=== PATIENT | male | born 1970 | race Caucasian/White ===

== ENCOUNTER 2019-07-07 06:40 | Emergency (ER) | payer BC ==
[2019-07-07] MEDS ORDERED: Sodium Chloride 0.9% 1,000 ML ONE (07:01)
[2019-07-07] MEDS ORDERED: Ondansetron PF 4 MG/2 ML Vial ONE (07:01)
[2019-07-07] MEDS ORDERED: Ketorolac Tromethamine 30 MG/ML VIAL ONE (07:01)
[2019-07-07 07:35] LABS: Bilirubin Small (Negative); Blood, Urine Large (Negative); Clarity Cloudy (Clear); Glucose, Urine (Dipstick) Negative (Negative); Leukocyte Negative (Negative); Nitrite Negative (Negative); Protein, Urine (Dipstick) 100 mg/dL (Neg-Trace); Urobilinogen 0.2 mg/dL (Less than 2)
[2019-07-07 07:38] LABS: Band 7 % (5-11); Eosinophils 3 % (0-10); Hemoglobin 14.3 g/dL (14.0-18.0); Lymphocytes 43 % (21-51); MDiff Complete? YES; Mean Corpuscular HGB CONC 31.7 g/dL (32.0-36.0); Mean Corpuscular Hemoglobin 29.2 pg (27.0-31.0); Mean Corpuscular Volume 92.3 fL (78.0-98.0); Monocytes 11 % (0-10); Neutrophil 24 % (42-75); Platelet Count 287 thou/uL (130-400); Platelet Morphology Comment Appears Adequate; RBC Distribution Width 11.7 % (11.5-14.5); RBC Morphology Normal; Reactive Lymphocytes 12 % (0-10); Red Blood Cell (RBC) Count 4.87 mill/uL (4.70-6.10); White Blood Cell (WBC) Count 6.7 thou/uL (4.8-10.8)
[2019-07-07 07:44] LABS: Bacteria/HPF Rare-Few HPF (None Seen); RBC/HPF Greater than 50 HPF (0-3); Squamous Epithelial 0-3 HPF (0-3); Yeast-Budding 3+ HPF (None Seen)
[2019-07-07 07:44] LABS: ALT (SGPT) 13 U/L (8-55); AST (SGOT) 11 U/L (5-34); Albumin 4.2 g/dL (3.5-5.0); Alkaline Phosphatase 54 U/L (40-110); Anion Gap 14 mmol/L (10-20); BUN (Urea Nitrogen) 19 mg/dL (8.4-25.7); Bilirubin, Total 0.5 mg/dL (0.2-1.2); Calc. Creatinine Clearance 0 mL/min (70-130); Calcium 8.5 mg/dL (7.8-10.44); Carbon Dioxide 22 mmol/L (22-29); Chloride 110 mmol/L (98-107); Estimated GFR-MDRD 68; Globulin 2.6 g/dL (2.4-3.5); Glucose 136 mg/dL (70-105); Potassium 3.1 mmol/L (3.5-5.1); Protein, Total 6.8 g/dL (6.0-8.3); Sodium 143 mmol/L (136-145)
[2019-07-07] MEDS ORDERED: Morphine 10 MG/ML VIAL ONE (07:45)
[2019-07-07] MEDS ORDERED: NS 0.9% w/ 20 MEQ KCL 1,000 ML ONE (08:03)
[2019-07-07] MEDS ORDERED: Tamsulosin HCl 0.4 MG CAP ONE (08:40)
--- NOTE | 2019-07-07 09:06 | CT ---
CT ABDOMEN AND PELVIS WITHOUT CONTRAST: HISTORY: Flank pain. FINDINGS: ABDOMEN: The lung bases are clear. The liver, spleen, pancreas and gallbladder regions appear unremarkable, given the limitations of a n oncontrast study. The right and left adrenal glands are normal in appearance. The right and left kidneys are normal in size. No renal calculi are seen. The left ureter is slightly dilated and there is prominence of the l eft collecting system. This is related to an approximately 4 mm distal left ureteral calculus, locate d approximately 3 cm proximal to the left ureterovesical junction. There is no significant periaortic or mesenteric adenopathy. PELVIS: No adenopathy, mass or free fluid. The appendix appears unremarkable. IMPRESSION: Approximately 3 to 4 mm distal left ureteral calculus with some very mild left sided hydronephrosis. The calculus is located approximately 3 cm proximal to the ureterovesical junction. POS: [facility]
== END 2019-07-07 09:27 | disposition home or self-care (01) ==
LOC: MADERS 06:40
DX: N20.0 Calculus of kidney (principal); E87.6 Hypokalemia; F17.220 Nicotine dependence, chewing tobacco, uncomplicated; Z79.899 Other long term (current) drug therapy
CPT/HCPCS: 36415; 74176; 80053; 81003; 81015; 85025; 96361; 96365; 96375; J1885; J2270; J2405; J3480; J7050

== ENCOUNTER 2020-12-10 13:47 | Outpatient (CLI) | payer BC | END 2020-12-10 13:48 | disposition home or self-care (01) | LOC: MADRAD 13:47 | PROVIDERS: ATTEND Family Medicine | DX: M25.552 Pain in left hip (principal) | CPT/HCPCS: 72170 ==

== ENCOUNTER 2021-02-02 10:12 | Outpatient (CLI) | payer BC | END 2021-02-02 10:13 | disposition home or self-care (01) | LOC: MADRAD 10:12 | PROVIDERS: ATTEND Family Medicine | DX: U07.1 COVID-19 (principal) | CPT/HCPCS: 71046 ==

== ENCOUNTER 2021-02-04 16:11 | Emergency (ER) | payer BC ==
[~2021-02-04 16:11] MED LIST: Lactated Ringer's 1,000 ML BAG ONE
[2021-02-04] MEDS ORDERED: Ketorolac Tromethamine 30 MG/ML VIAL ONE (16:57)
[2021-02-04] MEDS ORDERED: Albuterol Sulfate 2.5 mg/3 ml Neb ONE (16:57)
[2021-02-04] MEDS ORDERED: Lactated Ringer's 1,000 ML ONE (16:57)
[2021-02-04 17:11] LABS: #Lymphocytes 0.4 thou/uL (1.20-3.40); #Monocytes 0.3 thou/uL (0.11-0.59); #Neutrophils 9.6 thou/uL (1.40-6.50); %Basophils 0.3 % (0.0-1.0); %Lymphocytes 3.4 % (21.0-51.0); %Monocytes 2.7 % (0.0-10.0); %Neutrophils 93.7 % (42.0-75.0); Hemoglobin 14.2 g/dL (14.0-18.0); Mean Corpuscular HGB CONC 33.3 g/dL (32.0-36.0); Mean Platelet Volume 8.3 fL (7.4-10.4); Platelet Count 183 thou/uL (130-400); RBC Distribution Width 11.8 % (11.5-14.5); Red Blood Cell (RBC) Count 4.74 mill/uL (4.70-6.10); White Blood Cell (WBC) Count 10.3 thou/uL (4.8-10.8)
[2021-02-04 17:25] LABS: ALT (SGPT) 21 U/L (8-55); AST (SGOT) 26 U/L (5-34); Albumin 3.3 g/dL (3.5-5.0); Alkaline Phosphatase 51 U/L (40-110); Anion Gap 14 mmol/L (10-20); BUN (Urea Nitrogen) 31 mg/dL (8.4-25.7); Bilirubin, Total 0.4 mg/dL (0.2-1.2); CK (CPK) 67 U/L (30-200); Calc. Creatinine Clearance 0 mL/min (70-130); Calcium 9.3 mg/dL (7.8-10.44); Carbon Dioxide 23 mmol/L (22-29); Chloride 101 mmol/L (98-107); Globulin 3.5 g/dL (2.4-3.5); Glucose 124 mg/dL (70-105); Lipase 18 U/L (8-78); Potassium 3.4 mmol/L (3.5-5.1); Protein, Total 6.8 g/dL (6.0-8.3); Sodium 135 mmol/L (136-145)
[2021-02-04] MEDS ORDERED: Potassium Chloride 20 MEQ TAB ONE (20:26)
== END 2021-02-04 20:36 | disposition home or self-care (01) ==
LOC: MADERS 16:11
DX: U07.1 COVID-19 (principal); J12.82 Pneumonia due to coronavirus disease 2019; E87.6 Hypokalemia; F17.220 Nicotine dependence, chewing tobacco, uncomplicated
CPT/HCPCS: 71045; 80053; 82550; 83605; 83690; 84443; 85025; 86140; 93005; 96374; J1885; J7120; J7611; J7620

== ENCOUNTER 2021-02-07 11:58 | Emergency (ER) | payer BC ==
[~2021-02-07 11:58] MED LIST changes: -Lactated Ringer's 1,000 ML BAG ONE; +Sodium Chloride 0.9% 1,000 ML BAG ONE; +Sodium Chloride 0.9% 100 ML BAG ONE
[2021-02-07] MEDS ORDERED: Iopamidol 370 76% 125 ML VIAL FS ONE (12:31)
[2021-02-07] MEDS ORDERED: Dexamethasone 10 MG/ML VIAL ONE (12:37)
[2021-02-07] MEDS ORDERED: Aspirin Chewable 81 MG TAB ONE (12:55)
[2021-02-07 13:01] LABS: #Lymphocytes 0.5 thou/uL (1.20-3.40); #Monocytes 0.3 thou/uL (0.11-0.59); #Neutrophils 4.6 thou/uL (1.40-6.50); %Basophils 0.8 % (0.0-1.0); %Lymphocytes 8.6 % (21.0-51.0); %Monocytes 4.9 % (0.0-10.0); %Neutrophils 85.7 % (42.0-75.0); Hemoglobin 13.8 g/dL (14.0-18.0); Mean Corpuscular HGB CONC 33.3 g/dL (32.0-36.0); Mean Corpuscular Hemoglobin 30.1 pg (27.0-31.0); Mean Corpuscular Volume 90.4 fL (78.0-98.0); Mean Platelet Volume 7.1 fL (7.4-10.4); Platelet Count 195 thou/uL (130-400); RBC Distribution Width 12.1 % (11.5-14.5); Red Blood Cell (RBC) Count 4.58 mill/uL (4.70-6.10); White Blood Cell (WBC) Count 5.4 thou/uL (4.8-10.8)
[2021-02-07 13:19] LABS: ALT (SGPT) 36 U/L (8-55); AST (SGOT) 34 U/L (5-34); Alkaline Phosphatase 47 U/L (40-110); Anion Gap 16 mmol/L (10-20); BUN (Urea Nitrogen) 20 mg/dL (8.4-25.7); Bilirubin, Total 0.4 mg/dL (0.2-1.2); CRP (Inflammatory) 7.94 mg/dL (= or < 0.5); Calc. Creatinine Clearance 0 mL/min (70-130); Calcium 8.6 mg/dL (7.8-10.44); Carbon Dioxide 21 mmol/L (22-29); Chloride 102 mmol/L (98-107); Globulin 3.1 g/dL (2.4-3.5); Glucose 114 mg/dL (70-105); Potassium 3.9 mmol/L (3.5-5.1); Protein, Total 6.1 g/dL (6.0-8.3); Sodium 135 mmol/L (136-145)
[2021-02-07 16:10] LABS: SARS-CoV-2 NAA Rapid Test DETECTED (NotDetected)
== END 2021-02-07 18:08 | disposition short-term general hospital (02) ==
LOC: MADERS 11:58
DX: U07.1 COVID-19 (principal); J12.82 Pneumonia due to coronavirus disease 2019; F17.220 Nicotine dependence, chewing tobacco, uncomplicated; Z79.899 Other long term (current) drug therapy
CPT/HCPCS: 71275; 80053; 83605; 83880; 84484; 85025; 86140; 93005; 96374; J1100; J3490; J7050; Q9967; U0002

== ENCOUNTER 2021-03-04 08:15 | Outpatient (CLI) | payer BC | END 2021-03-04 08:16 | disposition home or self-care (01) | LOC: MADRAD 08:15 | PROVIDERS: ATTEND Family Medicine | DX: J12.82 Pneumonia due to coronavirus disease 2019 (principal); R91.8 Other nonspecific abnormal finding of lung field | CPT/HCPCS: 71046; 87086 ==

== ENCOUNTER 2021-03-25 09:57 | Outpatient (CLI) | payer BC | END 2021-03-25 09:58 | disposition home or self-care (01) | LOC: MADLAB 09:57 → MADRAD 09:58 | PROVIDERS: ATTEND Family Medicine | DX: U07.1 COVID-19 (principal); J12.82 Pneumonia due to coronavirus disease 2019 | CPT/HCPCS: 71046 ==

== ENCOUNTER 2021-04-14 09:16 | Outpatient (CLI) | payer BC | END 2021-04-14 09:17 | disposition home or self-care (01) | LOC: MADRAD 09:16 | PROVIDERS: ATTEND Family Medicine | DX: U07.1 COVID-19 (principal); J12.82 Pneumonia due to coronavirus disease 2019; R91.8 Other nonspecific abnormal finding of lung field | CPT/HCPCS: 71046 ==

== ENCOUNTER 2021-11-23 11:21 | Outpatient (CLI) | payer BC ==
[2021-11-23 12:09] LABS: CKMB 0.7 ng/mL (0-6.6); Troponin I Less than 0.010 ng/mL (< 0.028)
== END 2021-11-23 11:22 | disposition home or self-care (01) ==
LOC: MADLAB 11:21
PROVIDERS: ATTEND Family Medicine
DX: R06.00 Dyspnea, unspecified (principal); R06.02 Shortness of breath
CPT/HCPCS: 36415; 71046; 82553; 84484; 93005; 93010

== ENCOUNTER 2021-12-09 11:40 | Outpatient (CLI) | payer BC | END 2021-12-09 11:41 | disposition home or self-care (01) | LOC: MADRAD 11:40 | PROVIDERS: ATTEND Family Medicine | DX: S89.92XA Unspecified injury of left lower leg, initial encounter (principal); M25.562 Pain in left knee ==

== ENCOUNTER 2022-01-03 10:26 | Outpatient (CLI) | payer BC | END 2022-01-03 10:27 | disposition home or self-care (01) | LOC: MADLAB 10:26 | PROVIDERS: ATTEND Family Medicine | DX: M25.552 Pain in left hip (principal); M17.12 Unilateral primary osteoarthritis, left knee; I70.90 Unspecified atherosclerosis ==